=== PATIENT | male | born 1960 | race Caucasian/White ===

== ENCOUNTER 2017-12-28 12:50 | Emergency (ER) | payer MEDICAID ==
[~2017-12-28] VITALS: Ht 185.4 cm; Wt 110.0 kg
[~2017-12-28 12:50] MED LIST: ALBU8HFA PO; GUAI600T45 PO; IPRA4AER IH; LEVO50TA8 PO; LISI10TA4 PO
[2017-12-28 14:31] VITALS: BP 151/116
== END 2017-12-28 14:38 | disposition home or self-care (01) ==
LOC: ER 12:50
DX: I10 Essential (primary) hypertension (principal); J44.9 Chronic obstructive pulmonary disease, unspecified; F12.10 Cannabis abuse, uncomplicated; Z79.899 Other long term (current) drug therapy
CPT/HCPCS: 99281

== ENCOUNTER 2018-02-10 10:42 | Emergency (ER) | payer MEDICAID ==
[~2018-02-10] VITALS: Ht 182.9 cm; Wt 113.0 kg
[~2018-02-10 10:42] MED LIST changes: -ALBU8HFA PO; -IPRA4AER IH
[2018-02-10] MEDS ORDERED: IPRA4AER IH (11:38)
[2018-02-10] MEDS ORDERED: ALBU18HF2 IH (11:38)
[2018-02-10] MEDS ORDERED: LISI10TA4 PO (11:38)
[2018-02-10] MEDS ORDERED: LEVO50TA PO (11:38)
[2018-02-10 11:46] VITALS: BP 180/89
== END 2018-02-10 11:48 | disposition home or self-care (01) ==
LOC: ER 10:43
DX: J45.909 Unspecified asthma, uncomplicated (principal); Z76.0 Encounter for issue of repeat prescription; I10 Essential (primary) hypertension; F12.90 Cannabis use, unspecified, uncomplicated; Z59.0 Homelessness
CPT/HCPCS: 99283